=== PATIENT | male | born 1960 | race Two or more races ===

== ENCOUNTER 2024-02-18 16:52 | Inpatient (IN) | payer OTHER ==
[~2024-02-18] VITALS: Ht 185.4 cm; Wt 90.6 kg
--- NOTE | 2024-02-18 17:14 | ED.PDOC ---
HPI Comments 63 y.o male with PMH of SVT and HTN, presents to the ED via EMS for a chief complaint of chest pain and palpitations that started today. EMS noted SVT rhythm on scene which self resolved en route to the ED. Patient reports intermittent palpitations for a while, unable to specify how long. Patient is a poor historian, states his takes care of him and knows his PMH. At this time no chest pain, SOB, nausea, vomiting, fever or chills reported. Vital signs were stable on arrival. Chief Complaint: Palpitations Time Seen by MD: 17:05 Reviewed Notes: Nurses Notes, Petroleum Production Engineer Notes, Medications, Allergies Allergies: Coded Allergies: NO KNOWN ALLERGIES (Unverified , 07/23/09) Information Source: Patient, Emergency Med Personnel Mode of Arrival: EMS Severity: Moderate Timing: Hours Duration: Minutes Prehospital treatment: 12 Lead EKG Location: Substernal Onset: At Rest Cardiac Risk Factors: HTN PE Risk Factors: None History of: Other (SVT) Modifying Factors: Nothing Associated Signs and Symptoms: Palpitations Past Medical History PAST MEDICAL HISTORY: HTN Past Medical History (Other): SVT Surgical History: Denies all surgeries Family History Family History: Reviewed,noncontributory to illness, No family hx of Cancer, No family hx of DM, No family hx of Heart michelle, No family hx of HTN, No family hx ofKidney michelle, No family hx of Liver michelle, No family hx of Lung michelle, No family hx of Stroke Social History Smoker: Non-Smoker Alcohol: Denies ETOH Use Drugs: Denies Drug Use Lives In: Home Constitutional: denies: chills, diaphoresis, fatigue, fever, malaise, sweats, weakness, others EENTM: denies: blurred vision, double vision, ear bleeding, ear discharge, ear drainage, ear pain, ear ringing, eye pain, eye redness, hearing loss, mouth pain, mouth swelling, nasal discharge, nose bleeding, nose congestion, nose pain, photophobia, tearing, throat pain, throat swelling, voice changes, others Respiratory: denies: cough, hemoptysis, orthopnea, SOB at rest, shortness of breath, SOB with excertion, stridor, wheezing, others Cardiovascular: reports: chest pain, palpitations; denies: dizzy spells, diaphoresis, Dyspnea on exertion, edema, irregular heart beat, left arm pain, lightheadedness, PND, syncope, others Gastrointestinal: denies: abdomen distended, abdominal pain, blood streaked bowels, constipated, diarrhea, dysphagia, difficulty swallowing, hematemesis, melena, nausea, poor appetite, poor fluid intake, rectal bleeding, rectal pain, vomiting, others Genitourinary: denies: burning, dysuria, flank pain, frequency, hematuria, incontinence, penile discharge, penile sore, pain, testicle pain, testicle swelling, urgency, others Neurological: denies: dizziness, fainting, headache, left sided numbness, left sided weakness, numbness, paresthesia, pre-existing deficit, right sided numbness, right sided weakness, seizure, speech problems, tingling, tremors, weakness, others Musculoskeletal: denies: back pain, gout, joint pain, joint swelling, muscle pain, muscle stiffness, neck pain, others Integumetry: denies: bruises, change in color, change in hair/nails, dryness, laceration, lesions, lumps, rash, wounds, others Allergic/Immunocompromised: denies: Difficulty Healing, Frequent Infections, Hives, Itching, others Hematologic/Lymphatic: denies: anemia, blood clots, easy bleeding, easy bruising, swollen glands, others Endocrine: denies: excessive hunger, excessive sweating, excessive thirst, excessive urination, flushing, intolerance to cold, intolerance to heat, unexplained weight gain, unexplained weight loss, others Psychiatric: denies: anxiety, bipolar disorder, depression, hopeless, panic disorder, schizophrenia, sleepless, suicidal, others All Other Systems: Reviewed and Negative Physical Exam General Appearance: Mild Distress (Patient was in mild distress at time of evaluation.), Normal HEENT: Normal ENT Inspection, Pharynx Normal, TMs Normal Neck: Full Range of Motion, Non-Tender, Normal, Normal Inspection Respiratory: Chest Non-Tender, Lungs Clear, No Accessory Muscle Use, No Respiratory Distress, Normal Breath Sounds Cardiovascular: No Edema, No JVD, No Murmur, No Gallop, Normal Peripheral Pulses, Regular Rate/Rhythm, Other (Unremarkable cardiac evaluation at time of evaluation.) Breast Exam: Deferred Gastrointestinal: No Organomegaly, Non Tender, No Pulsatile Mass, Normal Bowel Sounds, Soft Genitalia: Deferred Pelvic: Deferred Rectal: Deferred Extremities: No calf tenderness, Normal capillary refill, Normal inspection, Normal range of motion, Non-tender, No pedal edema Neurologic: Alert, No Motor Deficits, Normal Affect, Normal Mood, No Sensory Deficits Cerebellar Function: Normal Reflexes: Normal Skin: Dry, Normal Color, Warm Lymphatic: No Adenopathy Was a procedure done? Was a procedure done?: No CP Differential Dx Differential Diagnosis: A-fib, Angina, Electrolyte Disorder, PSVT Differential Diagnosis: CHF X-Ray, Labs, Meds, VS Vital Signs Date Time Temp Pulse Resp B/P (MAP) Pulse Ox O2 Delivery O2 Flow Rate FiO2 02/18/24 21:00 72 16 96 Room Air* 0 21 02/18/24 20:46 126/79 02/18/24 20:30 129/79 02/18/24 19:40 98.7 72 16 126/79 (95) 96 98.7 02/18/24 19:30 129/79 02/18/24 19:15 68 19 126/79 (95) 96 02/18/24 19:00 60 20 104/69 (81) 96 02/18/24 18:45 63 15 105/74 (84) 96 02/18/24 18:30 98.2 60 12 95/73 (80) 96 98.2 02/18/24 18:15 59 16 99/66 (77) 96 02/18/24 17:38 115/79 02/18/24 17:27 71 18 97 Room Air* 0 21 02/18/24 17:19 177 02/18/24 17:16 191 20 115/79 (91) 96 02/18/24 17:13 81 02/18/24 16:57 98.6 84 16 134/98 (110) 98 02/18/24 16:55 84 Lab Test 02/18/24 19:59 02/18/24 18:01 02/18/24 17:08 Range/Units Troponin I High Sensitivity 507 *H 266 *H 271 *H </=54 ng/L White Blood Count 7.9 4.4-10.8 10^3/uL Red Blood Count 5.38 4.5-5.90 10^6/uL Hemoglobin 17.3 13.5-17.5 g/dL Hematocrit 51.3 41.0-53.0 % Mean Corpuscular Volume 95.3 80.0-100.0 fL Mean Corpuscular Hemoglobin 32.2 H 28.0-32.0 pg Mean Corpuscular Hemoglobin Concent 33.8 32.0-36.0 g/dL Red Cell Distribution Width 13.8 11.8-14.3 % Platelet Count 266 140-450 10^3/uL Mean Platelet Volume 7.0 6.9-10.8 fL Neutrophils (%) (Auto) 62.9 37.0-80.0 % Lymphocytes (%) (Auto) 28.8 10.0-50.0 % Monocytes (%) (Auto) 6.2 0.0-12.0 % Eosinophils (%) (Auto) 1.3 0.0-7.0 % Basophils (%) (Auto) 0.8 0.0-2.0 % Neutrophils # (Auto) 5.0 1.6-8.6 10 ^3/uL Lymphocytes # (Auto) 2.3 0.4-5.4 10 ^3/uL Monocytes # (Auto) 0.5 0-1.3 10 ^3/uL Eosinophils # (Auto) 0.1 0-0.8 10 ^3/uL Basophils # (Auto) 0.1 0-0.2 10 ^3/uL Nucleated Red Blood Cells 0.0 % Prothrombin Time 10.7 9.3-11.8 sec Prothrombin Time INR 1.01 0.9-1.15 Activated Partial Thromboplast Time 26.2 24.5-34.5 SEC Sodium Level 141 136-145 mmol/L Potassium Level 4.2 3.5-5.1 mmol/L Chloride Level 104 98-107 mmol/L Carbon Dioxide Level 27 20-31 mmol/L Anion Gap 10 5-15 Blood Urea Nitrogen 17 9-23 mg/dL Creatinine 1.16 0.700-1.30 mg/dL Glomerular Filtration Rate Calc 71 >90 mL/min BUN/Creatinine Ratio 14.7 10.0-20.0 Serum Glucose 103 74-106 mg/dL Calcium Level 10.3 8.7-10.4 mg/dL Magnesium Level 2.0 1.6-2.6 mg/dL Total Bilirubin 0.6 0.2-1.0 mg/dL Aspartate Amino Transferase (AST) 23 13-40 U/L Alanine Aminotransferase (ALT) 22 7-40 U/L Alkaline Phosphatase 91 46-116 U/L B-Type Natriuretic Peptide 309.69 0-100 pg/mL Total Protein 7.6 5.7-8.2 g/dL Albumin 5.1 H 3.2-4.8 g/dL Current Medications Medications (Trade) Dose Ordered Sig/Margarita Route Start Time Stop Time Status Last Admin Diltiazem HCl (Cardizem Injection) 20 mg ONCE ONCE IV 02/18/24 17:30 02/18/24 17:31 DC 02/18/24 17:31 Diltiazem HCl 100 ml @ 5 mls/hr Q20H IV 02/18/24 17:45 02/18/24 17:38 Furosemide (Lasix Injection) 40 mg ONCE ONCE IV 02/18/24 20:15 02/18/24 20:16 DC 02/18/24 20:46 CHEST RADIOGRAPH Indication: PALPITATIONS Technique: Single frontal view of the chest was obtained COMPARISON: None FINDINGS: Lines and Tubes: None Lungs: Clear Pleura: No effusion. No pneumothorax. Cardiomediastinal contours: Unremarkable Bones: Unremarkable IMPRESSION: No acute disease. X-Ray, Labs, Meds, VS Comment All studies performed in the ED today were reviewed by me personally. Chest x- ray was unremarkable for any acute pulmonary process. No consolidation or fibrotic disease noted. EKG revealed a sinus rhythm with a rate of 84. Atrial premature complexes were noted with left atrial enlargement, borderline left axis deviation, abnormal R-wave progression and some minimal ST elevation in anterior leads. RI interval was 164 and QT interval was 3-5. Confirmed with Dr. Church that the patient was not in an acute ST event. He concurred. Laboratories revealed an elevated BUN as well as a continued elevated troponin above 250. While in the ED, patient experienced another SVT event. 20 mg of Cardizem was dispensed and the patient was put on a Cardizem drip. Patient will be admitted for cardiology consult. Spoke with Dr. Lewis and advised him of patient presentation as well as EKG and laboratory findings. He agreed to accept the patient as an admit for a cardiac consultation tomorrow. Contacted Dr. Fong and discussed the EKG results with him for additional cardiac evaluation. 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 Time of 1ST Reevaluation: 20:17 Reevaluation 1ST: Improved Consultation: PCP, Cardiology Patient Education/Counseling: Diagnosis, Treatment, Prognosis Family Education/Counseling: Diagnosis, Treatment, No Family Present Departure 1 Departure Time of Disposition: 20:18 Impression: Primary Impression: SVT (supraventricular tachycardia) Additional Impressions: Acute exacerbation of CHF (congestive heart failure) Elevated troponin Disposition: ADMITTED INPATIENT Condition: Stable Discharged With: Self Critical Care Note Critical Care Time?: No Stability Stability form required: No Heart Score Heart Score: Heart Score Response (Comments) Value History Slightly Suspicious 0 EKG Repolarization Disturb 1 Age 45-64 1 Risk Factors 1 or 2 risk factors 1 Troponin >3 x's Normal limit 2 Total 5 I personally scribed for OTTO OLIVEIRA PAC ([employer]) on 02/18/24 at 17:14. Electronically submitted by Sheila Mar ([facility] I personally scribed for OTTO OLIVEIRA PAC ([employer]) on 02/18/24 at 19:14. Electronically submitted by Sheila Mar ([facility] OTTO OLIVEIRA PAC Feb 18, 2024 17:14
[2024-02-18] MEDS: ADENOSINE 6 MG/2 ML INJ IV ONE (17:22)
[2024-02-18 17:23] LABS: Basophils # (auto) 0.1 10 ^3/uL (0-0.2); Basophils % (auto) 0.8 % (0.0-2.0); Eosinophils # (auto) 0.1 10 ^3/uL (0-0.8); Eosinophils % (auto) 1.3 % (0.0-7.0); Hematocrit 51.3 % (41.0-53.0); Hemoglobin 17.3 g/dL (13.5-17.5); Lymphocytes # (auto) 2.3 10 ^3/uL (0.4-5.4); Lymphocytes % (auto) 28.8 % (10.0-50.0); Mean Corpuscular Hemoglobin 32.2 pg (28.0-32.0); Mean Corpuscular Hgb Conc. 33.8 g/dL (32.0-36.0); Mean Corpuscular Volume 95.3 fL (80.0-100.0); Monocytes # (auto) 0.5 10 ^3/uL (0-1.3); Monocytes % (auto) 6.2 % (0.0-12.0); Neutrophils % (auto) 62.9 % (37.0-80.0); Platelet Count (auto) 266 10^3/uL (140-450); Red Blood Cells 5.38 10^6/uL (4.5-5.90); Red Cell Distribution Width 13.8 % (11.8-14.3); White Blood Cell 7.9 10^3/uL (4.4-10.8)
[2024-02-18 17:27] VITALS: PULSE 71; RESP 18; O2SAT 97
[2024-02-18] MEDS ORDERED: dilTIAZem 125mg/125ml BAG KIT 125 ML IV ONE (17:30)
[2024-02-18] MEDS: dilTIAZem 25 MG/5 ML VIAL IV ONE (17:31)
[2024-02-18] MEDS: dilTIAZem 125mg/125ml BAG KIT 100 ML IV SCH (17:38)
[2024-02-18 17:39] LABS: INR 1.01 (0.9-1.15); Partial Thromboplastin Time 26.2 SEC (24.5-34.5); Prothrombin Time 10.7 sec (9.3-11.8)
[2024-02-18 17:42] LABS: Alanine Aminotransferase 22 U/L (7-40); Alkaline Phosphatase 91 U/L (46-116); Anion Gap 10 (5-15); Aspartate Aminotransferase 23 U/L (13-40); BUN/Creatinine Ratio 14.7 (10.0-20.0); Bilirubin, Total 0.6 mg/dL (0.2-1.0); Blood Urea Nitrogen 17 mg/dL (9-23); Calcium 10.3 mg/dL (8.7-10.4); Carbon Dioxide 27 mmol/L (20-31); Chloride 104 mmol/L (98-107); Glucose 103 mg/dL (74-106); Potassium 4.2 mmol/L (3.5-5.1); Sodium 141 mmol/L (136-145)
[2024-02-18 17:43] LABS: Total Protein 7.6 g/dL (5.7-8.2)
--- NOTE | 2024-02-18 17:43 | DVH ---
CHEST RADIOGRAPH Indication: PALPITATIONS Technique: Single frontal view of the chest was obtained COMPARISON: None FINDINGS: Lines and Tubes: None Lungs: Clear Pleura: No effusion. No pneumothorax. Cardiomediastinal contours: Unremarkable Bones: Unremarkable IMPRESSION: No acute disease.
[2024-02-18 17:54] LABS: Albumin 5.1 g/dL (3.2-4.8)
[2024-02-18] MEDS: FUROSEMIDE 40 MG/4 ML VIAL IV ONE (20:46)
[2024-02-18 21:00] VITALS: PULSE 72; RESP 16; O2SAT 96
[2024-02-18] MEDS ORDERED: HYDROcodone-ACET 5/325MG TAB PO PRN (21:30)
[2024-02-18] MEDS ORDERED: MORPHINE SULFATE INJ 2 MG/ml SYRG IV PRN (21:30)
[2024-02-18] MEDS ORDERED: ACETAMINOPHEN 325 MG TAB PO PRN (21:30)
[2024-02-18] MEDS ORDERED: ONDANSETRON HCL 4 MG/2 ML VIAL IV PRN (21:30)
[2024-02-18] MEDS ORDERED: METOPROLOL TARTRATE 1MG/1ML-5ML VIAL IV PRN (21:30)
[2024-02-18] MEDS: METOPROLOL TARTRATE 25 MG TAB PO SCH (22:00)
[2024-02-18 22:59] LABS: Urine Bacteria FEW /hpf (None Seen); Urine Blood Negative /uL (Negative); Urine Clarity Clear (Clear); Urine Color Light-Yellow (Yellow); Urine Hyaline Cast FEW /lpf (0 - 2); Urine Mucus FEW (None Seen); Urine Protein, UAD Negative (Negative); Urine Specific Gravity 1.014 (1.001-1.035); Urine Urobilinogen Normal (Negative); Urine WBC <1 /hpf (0 - 3); Urine pH 5.5 (5.0-9.0)
[2024-02-19] VITALS (12 sets, daily range): BP systolic 107–141; BP diastolic 69–98; PULSE 54–86; RESP 13–18; TEMP 97.7–98; O2SAT 95–99
[2024-02-19] MEDS: SODIUM CHLORIDE 0.9% 1,000 ML IV ONE ×2 (00:19→02:18)
--- NOTE | 2024-02-19 00:51 | DVHHP2 ---
Admitting Diagnosis: Chief Complaint: "I felt my heart beating through my chest" History of Present Illness This is a 63-year-old male with listed past medical history who presented with complaint of palpitations with associated pressure-like chest pain. Patient reports chronic intermittent palpitations but episodes were brief and on day of presentation the episode was persistent prompting patient to call Emergency Medical Services. Patient evaluated at [facility] Emergency room where medical intervention was provided with normalization of heart rate. Patient's chest pain and palpitations since resolved after control of heart rate and have not recurred since admission. No major events reported overnight. Patient denies complaints of fevers, chills, change in appetite, chest pain, palpitations, cough, shortness of breath, dyspnea on exertion, abdominal pain, nausea, vomiting, diarrhea, constipation, dysuria, lightheadedness, weakness, leg swelling, paresthesia or other complaints. Last bowel movement was yesterday, brown, soft, no melena, no hematochezia. Past Medical History Patient denies Family History Noncontributory Social History Patient denies current smoking, alcohol use or recreational/illicit drug use. Allergies: Coded Allergies: NO KNOWN ALLERGIES (Unverified , 07/23/09) Current Medications Current Medications Medications (Trade) Dose Ordered Sig/Margarita Route PRN Reason Start Time Stop Time Status Last Admin Diltiazem HCl 100 ml @ 5 mls/hr Q20H IV 02/18/24 17:45 02/18/24 17:38 Metoprolol Tartrate (Lopressor Tablet) 25 mg BID PO 02/18/24 22:00 Metoprolol Tartrate (Lopressor) 2.5 mg Q6HPRN PRN IV For SBP>160mmHg or pulse>130 02/18/24 21:30 Acetaminophen (Tylenol Tablet) 650 mg Q6HP PRN PO PAIN SCALE 1-3 OR TEMP>100.4 02/18/24 21:30 Acetaminophen/ Hydrocodone Bitart ([place] 5/325MG Tab) 1 tab Q6HP PRN PO MODERATE PAIN (4-6 PAIN SCALE) 02/18/24 21:30 Ondansetron HCl (Zofran) 4 mg Q6HP PRN IV NAUSEA / VOMITING 02/18/24 21:30 Morphine Sulfate 2 mg Q6HP PRN IV SEVERE PAIN (7-10 PAIN SCALE) 02/18/24 21:30 Enoxaparin Sodium (Lovenox) 90 mg Q12HR SC 02/19/24 10:00 UNV Vital Signs Vital Signs Date Time Temp Pulse Resp B/P (MAP) Pulse Ox O2 Delivery O2 Flow Rate FiO2 02/19/24 08:00 60 02/19/24 07:00 97.8 17 99/70 (80) 99 97.8 02/18/24 21:00 Room Air* 0 21 Physical Exam Physical Exam: General: This is a 63-year-old male appearing stated age in no acute distress. HEENT: Pupils equal and reactive to light and accommodation. Extraocular muscles intact. Mucous membranes moist. Conjunctivae [place]. Anicteric Sclera. Lungs: Bilateral air entry; no wheezes, rhonchi, rales. Heart: Regular Rate and Rhythm. Normal S1/S2. Abdomen: Bowel Sounds Normoactive, soft, non-tender, non-distended, no cva tenderness. Extremities: No clubbing, cyanosis, edema. No calf tenderness. Pedal pulses 2+. Neurologic: Patient alert, awake and oriented x 3. Cranial nerves II through XII intact. No focal deficits on gross sensorimotor exam. Results Labs Test 02/19/24 04:58 02/18/24 22:37 02/18/24 17:08 Range/Units Troponin I High Sensitivity 875 *H </=54 ng/L Urine Color Light-yellow Yellow Urine Clarity Clear Clear Urine pH 5.5 5.0-9.0 Urine Specific [place] 1.014 1.001-1.035 Urine Protein Negative Negative Urine Ketones Negative Negative Urine Blood Negative Negative /uL Urine Nitrite Negative Negative Urine Bilirubin Negative Negative Urine Urobilinogen Normal Negative mg/dL Urine Leukocyte Esterase Negative Negative /uL Urine RBC 1 0 - 3 /hpf Urine WBC <1 0 - 3 /hpf Urine Squamous Epithelial Cells Few <5 /hpf Urine Bacteria Few H None Seen /hpf Urine Hyaline Casts Few 0 - 2 /lpf Urine Mucus Few None Seen Urine Glucose Normal Normal mg/dL White Blood Count 7.9 4.4-10.8 10^3/uL Red Blood Count 5.38 4.5-5.90 10^6/uL Hemoglobin 17.3 13.5-17.5 g/dL Hematocrit 51.3 41.0-53.0 % Mean Corpuscular Volume 95.3 80.0-100.0 fL Mean Corpuscular Hemoglobin 32.2 H 28.0-32.0 pg Mean Corpuscular Hemoglobin Concent 33.8 32.0-36.0 g/dL Red Cell Distribution Width 13.8 11.8-14.3 % Platelet Count 266 140-450 10^3/uL Mean Platelet Volume 7.0 6.9-10.8 fL Neutrophils (%) (Auto) 62.9 37.0-80.0 % Lymphocytes (%) (Auto) 28.8 10.0-50.0 % Monocytes (%) (Auto) 6.2 0.0-12.0 % Eosinophils (%) (Auto) 1.3 0.0-7.0 % Basophils (%) (Auto) 0.8 0.0-2.0 % Neutrophils # (Auto) 5.0 1.6-8.6 10 ^3/uL Lymphocytes # (Auto) 2.3 0.4-5.4 10 ^3/uL Monocytes # (Auto) 0.5 0-1.3 10 ^3/uL Eosinophils # (Auto) 0.1 0-0.8 10 ^3/uL Basophils # (Auto) 0.1 0-0.2 10 ^3/uL Nucleated Red Blood Cells 0.0 % Prothrombin Time 10.7 9.3-11.8 sec Prothrombin Time INR 1.01 0.9-1.15 Activated Partial Thromboplast Time 26.2 24.5-34.5 SEC Sodium Level 141 136-145 mmol/L Potassium Level 4.2 3.5-5.1 mmol/L Chloride Level 104 98-107 mmol/L Carbon Dioxide Level 27 20-31 mmol/L Anion Gap 10 5-15 Blood Urea Nitrogen 17 9-23 mg/dL Creatinine 1.16 0.700-1.30 mg/dL Glomerular Filtration Rate Calc 71 >90 mL/min BUN/Creatinine Ratio 14.7 10.0-20.0 Serum Glucose 103 74-106 mg/dL Calcium Level 10.3 8.7-10.4 mg/dL Magnesium Level 2.0 1.6-2.6 mg/dL Total Bilirubin 0.6 0.2-1.0 mg/dL Aspartate Amino Transferase (AST) 23 13-40 U/L Alanine Aminotransferase (ALT) 22 7-40 U/L Alkaline Phosphatase 91 46-116 U/L B-Type Natriuretic Peptide 309.69 0-100 pg/mL Total Protein 7.6 5.7-8.2 g/dL Albumin 5.1 H 3.2-4.8 g/dL [address] [address] Ph: [phone] DIAGNOSTIC IMAGING Diagnostic Imaging Report : [id number] Signed PATIENT: ZAINAB BURTON ACCT: [id number] UNIT: [id number] : 1960 LOC: ER ROOM / BED: / AGE / SEX: 63 / M ADM STATUS: REG ER SERVICE 02 ORDERING PHYSICIAN: LEONARDO MOSQUEDA MD PROCEDURE(s): CXRP - CHEST PORTABLE REASON: PALPITATIONS ORDER NUMBER(s): [id number], ACCESSION NUMBER(s): [id number] CHEST RADIOGRAPH Indication: PALPITATIONS Technique: Single frontal view of the chest was obtained COMPARISON: None FINDINGS: Lines and Tubes: None Lungs: Clear Pleura: No effusion. No pneumothorax. Cardiomediastinal contours: Unremarkable Bones: Unremarkable IMPRESSION: No acute disease. ATED BY: RAMON ACE MD DICTATED DATE/TIME: 02/18/241738 SIGNED BY: RAMON ACE MD SIGNED DATE/TIME: 02/18/241738 CC: Plan This is a 63-year-old male who presented with complaints of palpitations and chest pain admitted for further evaluation and management of: 1. Non ST-elevation myocardial infarction with SVT. Continue supportive management with pain management as needed, supplemental oxygen as needed, nitroglycerin as needed and beta-messi therapy as tolerated. It is notable that patient given Lasix in the emergency room after ER provider notice elevated BNP but I suspect elevated BNP was secondary to tachycardia. Patient has no signs/symptoms of fluid overload clinically. After given Lasix, patient became hypotensive and responded to administration of IV fluids. Cardiology consultation. Continue Lovenox until cardiology evaluation for further recommendations. ICU monitoring given initial lab blood pressure after administration of Lasix. We will downgrade once patient hemodynamically stable for at least 12 hours. Aspiration and pressure ulcer precautions Incentive spirometry SCDs bilaterally Advanced directives: Full code Status: Critical Prognosis: Fair All above discussed with the patient who verbalized agreement and understanding of current status and plan. All questions answered. Patient declined reaching out to any family for update. This medical document was created using an electronic medical record system with [employer] dictation system. Although this document has been carefully reviewed, there may still be some phonetic and typographical errors. These areas are purely typographical due to imperfections of the software programs, and do not reflect any compromise in the patient's medical care Plan discussed with: Other TIRSO FLOYD MD Feb 19, 2024 00:51
[2024-02-19] MEDS: SODIUM CHLORIDE 0.9% 1,000 ML IV SCH (09:12)
[2024-02-19] MEDS: ENOXAPARIN SOD 100 MG/1 ML SYRINGE SC SCH (10:07)
--- NOTE | 2024-02-19 11:41 | ECG ---
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
--- NOTE | 2024-02-19 12:39 | ECG ---
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
[2024-02-19] MEDS: IODIXANOL 320MG/ML 100ML BTL IV ONE (14:51)
[2024-02-19] MEDS: ANGIOMAX 250 MG VIAL IV ONE (15:12)
[2024-02-19] MEDS: fentaNYL CITRATE 100 MCG/2 ML VL ONE (15:13)
[2024-02-19] MEDS: VERAPAMIL 2.5MG/ML INJ 2ML VIAL IV ONE (15:13)
[2024-02-19] MEDS: MIDAZOLAM HCL 2MG/2ML 2ml VIAL (1mg/ml) ONE (15:13)
[2024-02-19] MEDS: SODIUM CHL 0.9% 0 ML ONE (15:13)
[2024-02-19] MEDS: HEPARIN SODIUM (PORCINE) 5000 UNITS/ML 1ML VIAL ONE (15:13)
[2024-02-19] MEDS: LIDOCAINE 2%HCL (LOCAL ANESTH.) INJ 10ml MDV ONE (15:13)
--- NOTE | 2024-02-19 15:56 | DVHOP2 ---
Operative Report -Cardiology Report Details Date: 02/19/24 Preop Diagnosis: Non ST-elevation myocardial infarction. Postop Diagnosis: Coronary angiography revealed severe diffuse three-vessel disease including total right coronary artery, total left circumflex system, subtotal left anterior descending artery with a auto collaterals from left to right system. 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 I have discussed the findings with the his primary campus ambassador Dr. Reynolds as well as the patient's, patient would need coronary artery bypass graft surgery as an option for revascularization. Surgeon: Kevin Avila MD Anesthesiologist: Conscious sedation using25 mcg of fentanyl as well as a mg IV midazolam. It was given under the direct supervision of the primary campus ambassador myself in the presence of the attending nurses. Patient was monitored for total of35 minutes without obvious complication. Anesthesia: Local Consent: The patient was informed of the risks and benefits of the procedure. These include but are not limited to complications of anesthesia, postoperative infection, incomplete relief of symptoms, recurrence of symptoms, damage to blood vessels, nerves and tendons, deep venous thrombosis, pulmonary embolism and possible need for repeat surgery in the future. Indications for Surgery: This is a 63-year-old gentleman who presented to the hospital complaining of palpitation and intermittent chest pain. He was found to have supraventricular tachycardia that was converted spontaneously, this was confirmed by by an EKG. He is also dynamic EKG changes and positive troponin has history of hypertension hyperlipidemia and past history of cardiac disease for which she underwent coronary angiogram many years back. He he has been followed by Dr. Tobi donahue and he was planned to undergo coronary angiography as an outpatient but he came into the hospital prior to his appointment with the this pain and positive troponin culminating into non ST-elevation myocardial infarction, leading to his coronary angiogram today. Name of Procedure Performed 1. Left heart catheterization with left ventricular end-diastolic pressure measurement. 2. Selective right and left coronary angiography utilizing right transradial approach. 3. Conscious sedation using25 mcg of fentanyl as well as a mg IV midazolam. Procedure Details Procedure Details: Procedure note and vascular access: After informed consent was obtained, risks, benefits, complications, and alternatives were discussed in details with the patient who agrees to have the procedure done. At the beginning of the procedure, the right wrist in the right groin area were prepped and draped in regular sterile fashion. Patient received conscious sedation with25 mcg of fentanyl as well as1 mg IV midazolam. Followed which a total of 2 cc of 1% xylocaine was given locally to the right wrist area before a six Pashto sheath was placed using modified Seldinger technique. A cocktail of 2.5 mg of verapamil as well as 100 mcg of nitroglycerin were given intra-arterial to prevent vasospasm findings were as follows: 1. Left heart catheterization with left ventricular end-diastolic pressure measurement: With the help of a tiger five Pashto catheter as well as a J-tip wire we were able to cross the aortic valve and measured left ventricular end-diastolic pressure which was low at 3 mm of mercury. There was no gradient across the aortic valve on the pullback. 2. Selective right and left coronary angiography utilizing right transradial approach: 1. Right coronary artery comes off the right coronary cusp, there is a flush occlusion of the proximal part of the right coronary artery with a auto sammy aterals, the distal right coronary artery could not be visualized antegrade leave indicating complete occlusion of the the mid and distal part. 2. The left main comes off the left coronary cusp there is [id number] calcification of the distal left main without critical stenosis. It bifurcates into a large left anterior descending artery as well as a medium to large left circumflex system. 3. The left anterior descending artery is a large vessel it has tandem tight lesion at 80-90% of the proximal segment followed by 75% before the bifurcation of a 2nd diagonal branch which has ostial 80% stenosis. The distal part of the LAD is mildly diseased but has good target. There is a large septal poke in the provides collateral to the left circumflex system which is completely occluded as well as the distal part of the right coronary artery. 4. The left circumflex vessel is medium-sized vessel it gives rise to large 1st obtuse marginal branch. It is completely occlusion of the proximal part and reconstitutes distally by collateral from the septal poke in as well as a distal LAD. The left circumflex vessels also provide some collateral to the distal part of the right coronary artery. While the patient is on the table he developed a short run of supraventricular tachycardia which was converted spontaneously into sinus rhythm without any hemodynamic consequences. Impression and plan: 1. Diffuse three-vessel disease as pointed above involving an occluded right coronary artery, and occluded left circumflex artery, and multiple tandem lesion to the proximal and mid LAD. There is also tight ostial diagonal branch stenosis. 2. Normal left ventricular end-diastolic pressure measurement. Short run of supraventricular tachycardia was noted while we are measuring left ventricular end-diastolic pressure, it was spontaneously converted to sinus rhythm. 3. Patient would need an echocardiogram to assess left ventricular systolic function, and to assess the presence of any significant valve pathology prior to considering coronary artery bypass graft surgery. 4. Given the diffuse nature of the disease of the patient has he would likely benefit from coronary artery bypass graft revascularization, particularly with good distal target of all three-vessel. 5. I have discussed the case with the with Dr. Reynolds with the campus ambassador covering for Dr. White and he will arrange the patient transferred to higher level care facility for an open heart surgery. 6. We will keep patient on IV heparin for now as well as baby aspirin and we will discontinue the Plavix. Condition Good [facility] Clinical Frailty Scale [facility] Clinical Frailty Scale: Well Stress Test Stress Test Performed: No Risk/Extent of Ischemia: High Dominance Dominance: Right Disposition KEVIN AVILA MD Feb 19, 2024 15:56
[2024-02-19] MEDS: ASPirin 81 mg TAB PO SCH (16:23)
--- NOTE | 2024-02-19 16:23 | DVHDS2 ---
Discharge Summary Date of Admission Feb 18, 2024 at 21:26 Date of Discharge: Feb 19, 2024 Brief Hx & Hospital Course: This is a 63-year-old male with listed past medical history who presented with complaint of chest pain and palpitations diagnosed with a supraventricular tachycardia confirmed to have a non ST elevation myocardial infarction. Cardiology Service consultation appreciated that the patient underwent cardiac catheterization in coordination with Dr. Monk/Dr. Rodriguez with findings of multivessel coronary artery disease with recommendation that patient would benefit from a CABG. There are no Cardiothoracic Services available at this facility and now patient recommended for emergent transfer to higher level care for consideration of the procedure. Patient did agreement with the plan. No major events reported overnight. Patient denies complaints of fevers, chills, change in appetite, chest pain, palpitations, cough, shortness of breath, dyspnea on exertion, abdominal pain, nausea, vomiting, diarrhea, constipation, dysuria, lightheadedness, weakness, paresthesia or other complaints. Last bowel movement was yesterday, brown, soft, no melena, no hematochezia. Condition at Discharge: Stable Final Diagnosis/Problems List Non ST-elevation myocardial infarction. Multivessel coronary artery disease warranting CABG. Discharge Disposition: Acute Care Facility Discharge Instruct/Medications Diet: Cardiac 2g Na,low cholest Activity: Bed rest Follow Up/Referral: Transfer emergently to higher level care for consideration of coronary artery bypass graft per recommendations Medications: Continue all current medications Discharge Statement: "Patient was advised to return to the ER or call 911 if any headaches, dizziness, shortness of breath, chest pain, abdominal pain, bleeding, fevers, or worsening of medical condition. Patient was counseled about treatment plan, medications, possible side effects, patientverbalized understanding. All questions were answered to the best of my ability. This discharge took greater then 30 minutes in planning, reviewing documentation, counseling the patient, and discussing with other team members." ASSESSMENT ASSESSMENT Assessment TIRSO FLOYD MD Feb 19, 2024 16:23
[2024-02-19] MEDS: HEPARIN DRIP/D5W 100UNITS/ML 250 ML IV SCH (16:26)
[2024-02-19] MEDS ORDERED: METO-289 PO (16:50)
[2024-02-19] MEDS ORDERED: LISI-287 PO (16:50)
[2024-02-19] MEDS ORDERED: CLOP75TA70 PO (16:50)
[2024-02-19 18:30] LABS: Basophils # (auto) 0.1 10 ^3/uL (0-0.2); Basophils % (auto) 1.2 % (0.0-2.0); Eosinophils # (auto) 0.2 10 ^3/uL (0-0.8); Eosinophils % (auto) 3.5 % (0.0-7.0); Hematocrit 42.7 % (41.0-53.0); Hemoglobin 14.5 g/dL (13.5-17.5); Lymphocytes % (auto) 41.2 % (10.0-50.0); Mean Corpuscular Hemoglobin 32.1 pg (28.0-32.0); Mean Corpuscular Hgb Conc. 33.9 g/dL (32.0-36.0); Mean Corpuscular Volume 94.7 fL (80.0-100.0); Monocytes # (auto) 0.3 10 ^3/uL (0-1.3); Monocytes % (auto) 6.5 % (0.0-12.0); Neutrophils # (auto) 2.3 10 ^3/uL (1.6-8.6); Neutrophils % (auto) 47.6 % (37.0-80.0); Nucleated Red Blood Cells % 0.1 %; Platelet Count (auto) 204 10^3/uL (140-450); Red Blood Cells 4.51 10^6/uL (4.5-5.90); Red Cell Distribution Width 13.6 % (11.8-14.3); White Blood Cell 4.8 10^3/uL (4.4-10.8)
[2024-02-19 18:45] LABS: INR 1.09 (0.9-1.15); Partial Thromboplastin Time 36.7 SEC (24.5-34.5); Prothrombin Time 11.5 sec (9.3-11.8)
--- NOTE | 2024-02-19 22:45 | DVHINCON2 ---
DATE OF CONSULTATION: 02/19/2024 CARDIOLOGY CONSULTATION REFERRING PHYSICIAN: Dr. Ortega. CONSULTING PHYSICIAN: Dr. Monk. INDICATION: Palpitations, chest pain and elevated troponin. HISTORY OF PRESENT ILLNESS: The patient is a 63-year-old male with history of hypertension, history of SVT, presented to the hospital with complaints of palpitation, chest pain. He described the pain as pressure, brought to the hospital. The patient was noted to be in narrow complex tachycardia, which subsequently converted to sinus rhythm and currently is sinus rhythm with PACs. The patient does give history of on and off chest pressure, exertional. His troponins were noted to be elevated, which has been trending up. The patient sees Dr. Farias as an outpatient and was supposed to undergo elective coronary angiogram. PAST MEDICAL HISTORY: * Hypertension. * SVT. MEDICATIONS: Per med rec. ALLERGIES: No known drug allergies. PHYSICAL EXAMINATION: GENERAL: Alert and awake, in no form of cardiopulmonary distress. VITAL SIGNS: Blood pressure 114/78, pulse 64 per minute, saturation 95%. HEENT: No carotid bruits. No jugular venous distention. CHEST: Bilateral air entry. CARDIOVASCULAR: Precordial and carotid pulses palpable. Normal S1, S2. Regular rate and rhythm. No appreciable gallop or rubs. EXTREMITIES: No peripheral edema. DIAGNOSTIC DATA: White count 7, hemoglobin 17, platelets 226. Sodium 141, potassium 4.2, creatinine is 1.1. BNP is 309. Troponin, first set is 271, second set is 260, third set is 802, fourth set is 875. ASSESSMENT: * Palpitations secondary to supraventricular tachycardia, currently resolved. * Non-ST elevation myocardial infarction. * Hypertension. RECOMMENDATIONS: * Continue with beta messi. * Start aspirin 81 mg daily. * We will review echo. * The patient needs left heart catheterization to define coronary anatomy. * If coronary angiogram could not be done today, we will start anticoagulation therapy. * Continue Lovenox. * Continue telemetry monitoring. Thank you for allowing me to partake in the care of this patient. Velia Monk MD LB/HEM TID: [id number] RECEIPT: [id number]
[2024-02-20] VITALS (9 sets, daily range): BP systolic 88–116; BP diastolic 59–76; PULSE 68–85; RESP 17–20; TEMP 97.3–99.2; O2SAT 93–98
[2024-02-20] MEDS: diphenhdrAMINE HCL 50 MG/1 ML VL IV PRN (05:51)
[2024-02-20 06:59] LABS: Basophils # (auto) 0 10 ^3/uL (0-0.2); Basophils % (auto) 0.2 % (0.0-2.0); Eosinophils # (auto) 0.2 10 ^3/uL (0-0.8); Eosinophils % (auto) 3.3 % (0.0-7.0); Hematocrit 44.6 % (41.0-53.0); Hemoglobin 15.8 g/dL (13.5-17.5); Lymphocytes # (auto) 0.7 10 ^3/uL (0.4-5.4); Lymphocytes % (auto) 12.9 % (10.0-50.0); Mean Corpuscular Hemoglobin 33.5 pg (28.0-32.0); Mean Corpuscular Hgb Conc. 35.5 g/dL (32.0-36.0); Mean Corpuscular Volume 94.2 fL (80.0-100.0); Monocytes # (auto) 0.2 10 ^3/uL (0-1.3); Monocytes % (auto) 3.6 % (0.0-12.0); Neutrophils # (auto) 4.3 10 ^3/uL (1.6-8.6); Nucleated Red Blood Cells % 0.2 %; Platelet Count (auto) 203 10^3/uL (140-450); Red Blood Cells 4.73 10^6/uL (4.5-5.90); Red Cell Distribution Width 13.5 % (11.8-14.3); White Blood Cell 5.4 10^3/uL (4.4-10.8)
[2024-02-20 07:32] LABS: Alanine Aminotransferase 14 U/L (7-40); Albumin 3.9 g/dL (3.2-4.8); Alkaline Phosphatase 68 U/L (46-116); Anion Gap 8 (5-15); Aspartate Aminotransferase 18 U/L (13-40); Blood Urea Nitrogen 16 mg/dL (9-23); Calcium 9.4 mg/dL (8.7-10.4); Carbon Dioxide 26 mmol/L (20-31); Chloride 106 mmol/L (98-107); Glucose 96 mg/dL (74-106); Sodium 140 mmol/L (136-145)
[2024-02-20 07:33] LABS: Bilirubin, Total 0.9 mg/dL (0.2-1.0)
[2024-02-20] MEDS: HEPARIN DRIP/D5W 100UNITS/ML 250 ML IV SCH (14:30)
--- NOTE | 2024-02-20 14:41 | DVHSR ---
APPROVED REPORT EXAM: Two-dimensional and M-mode echocardiogram with Doppler and color Doppler. Blood Pressure: 99/70 mmHg INDICATION NSTEMI RISK FACTORS Height: 73, Weight: 205 DIMENSIONS LVDd5.7 (3.8-5.7cm)LA (2D)4.8 (1.9-4.0cm)Aortic Root3.8 (2.0-3.7cm) LVDs4.6 (2.5-4.0cm)LA (MM) (1.9-4.0cm)Aortic Cusp Exc1.4 (1.5-2.0cm) EF (%) 43.0 (55-70%)Rt. Atrium4.8 (1.9-4.0cm)Asc. Aorta cm Mitral Valve MitralMitral Stenosis E wave0.84m/sMV Mean GR.mmHg A wave0.47m/sMV Peak GR.98mmHg E/A ratio1.82D MVAcm2 DECEL [id number] 1/2 Eiye20hb IVRTmsDop MVA3.43cm2 Aortic Valve Aortic ValveAortic Stenosis V10.64m/Vika Mean GR.2mmHg V20.91m/Vika Peak GR.3mmHg LVOT Diameter2.4 (1.8-2.4cm)Doppler AVA3.18cm2 Tricuspid Valve TR Velocity2.47m/s [id number] Other Information Technically limited study due to body habitus and patient position. Conclusion Moderately reduced left ventricular systolic function estimated ejection fraction of 40%. There is a nterior anteroapical, and mild inferior wall hypokinesia. There is grade 2 diastolic dysfunction. Normal right ventricular size and dimension. Normal right ventricular systolic function. Moderately dilated right and left atria Normal aortic valve structure and function. Normal mitral valve structure and function. Normal tricuspid valve structure and function. The pulmonary valve is grossly normal. No pericardial effusion.
[2024-02-20 15:17] LABS: INR 1.07 (0.9-1.15); Prothrombin Time 11.3 sec (9.3-11.8)
[2024-02-20] MEDS ORDERED: AMIODARONE BOLUS KIT 100 ML IV ONE (18:00)
[2024-02-20] MEDS ORDERED: AMIODARONE 450mg/250ml AE 250 ML IV ONE (18:00)
[2024-02-20 22:47] LABS: INR 1.08 (0.9-1.15); Partial Thromboplastin Time 53.2 SEC (24.5-34.5); Prothrombin Time 11.4 sec (9.3-11.8)
[2024-02-21] VITALS (8 sets, daily range): BP systolic 89–115; BP diastolic 58–78; PULSE 56–85; RESP 18–20; TEMP 98–98.9; O2SAT 95–98
[2024-02-21] MEDS: HEPARIN DRIP/D5W 100UNITS/ML 250 ML IV SCH (06:08)
[2024-02-21 06:59] LABS: Basophils # (auto) 0 10 ^3/uL (0-0.2); Basophils % (auto) 0.2 % (0.0-2.0); Eosinophils # (auto) 0.4 10 ^3/uL (0-0.8); Eosinophils % (auto) 10.3 % (0.0-7.0); Hematocrit 45.2 % (41.0-53.0); Hemoglobin 15.3 g/dL (13.5-17.5); Lymphocytes # (auto) 1.6 10 ^3/uL (0.4-5.4); Lymphocytes % (auto) 39.1 % (10.0-50.0); Mean Corpuscular Hemoglobin 32.2 pg (28.0-32.0); Mean Corpuscular Hgb Conc. 33.9 g/dL (32.0-36.0); Mean Corpuscular Volume 95.1 fL (80.0-100.0); Monocytes # (auto) 0.3 10 ^3/uL (0-1.3); Monocytes % (auto) 6.2 % (0.0-12.0); Neutrophils # (auto) 1.8 10 ^3/uL (1.6-8.6); Neutrophils % (auto) 44.2 % (37.0-80.0); Nucleated Red Blood Cells % 0.2 %; Platelet Count (auto) 203 10^3/uL (140-450); Red Blood Cells 4.75 10^6/uL (4.5-5.90); Red Cell Distribution Width 13.8 % (11.8-14.3); White Blood Cell 4.1 10^3/uL (4.4-10.8)
[2024-02-21 07:18] LABS: INR 1.12 (0.9-1.15); Prothrombin Time 11.8 sec (9.3-11.8)
[2024-02-21 07:28] LABS: Partial Thromboplastin Time 78.4 SEC (24.5-34.5)
[2024-02-21 14:22] LABS: INR 1.07 (0.9-1.15); Partial Thromboplastin Time 64.6 SEC (24.5-34.5); Prothrombin Time 11.3 sec (9.3-11.8)
[2024-02-21 20:03] LABS: INR 1.06 (0.9-1.15); Partial Thromboplastin Time 59.9 SEC (24.5-34.5); Prothrombin Time 11.2 sec (9.3-11.8)
== END 2024-02-21 22:30 | disposition short-term general hospital (02) | DRG 280 ==
LOC: EDBD 16:52 → ER 16:52 → OVERFLOW 21:26 → TELE-EAST 02-19 17:42
PROVIDERS: ADMIT Internal Medicine; ATTEND Internal Medicine
PROC: 4A023N7 Measurement of Cardiac Sampling and Pressure, Left Heart, Percutaneous Approach (ICD-10-PCS; principal; 2024-02-19)
PROC: B211YZZ Fluoroscopy of Multiple Coronary Arteries using Other Contrast (ICD-10-PCS; 2024-02-19)
DX: I21.4 Non-ST elevation (NSTEMI) myocardial infarction (principal); I50.43 Acute on chronic combined systolic (congestive) and diastolic (congestive) heart failure; I47.10 Supraventricular tachycardia, unspecified; I11.0 Hypertensive heart disease with heart failure; I25.10 Atherosclerotic heart disease of native coronary artery without angina pectoris; I95.9 Hypotension, unspecified; E78.5 Hyperlipidemia, unspecified; I49.1 Atrial premature depolarization; Z95.1 Presence of aortocoronary bypass graft; Z79.899 Other long term (current) drug therapy
CPT/HCPCS: 36415; 71045; 80053; 81001; 83735; 83880; 84484; 85025; 85610; 85730; 93005; 93306; 93458; 96361; 96374; 96375; 99152; G0378; J0153; J2003; J2250; Q9967